=== PATIENT | female | born 1990 | race Caucasian/White ===

== ENCOUNTER 2018-02-05 09:41 | Emergency (ER) | payer OTHER ==
[~2018-02-05] VITALS: Ht 162.6 cm; Wt 84.0 kg
[~2018-02-05 09:41] MED LIST: Z.0.NO CURRENT MEDS; ZITH500T PO
[2018-02-05 09:47] VITALS: BP 133/84; PULSE 91; RESP 16; TEMP 98.1; O2SAT 99
--- NOTE | 2018-02-05 10:25 | PD ---
HPI Chief Complaint: Injury Time Seen by Provider: 10:16 Travel History International Travel<30 days: No Contact w/Intl Traveler<30days: No Traveled to known affect area: No History of Present Illness HPI 27-year-old female presents to the emergency department for evaluation of left ankle injury that occurred twice yesterday. Patient states she rolled her left ankle twice coming downstairs. She had no other injury. No head injury or LOC. No neck pain or back pain. No chest pain or abdominal pain. Patient states the pain is 1/10 with rest, exacerbates the 10/10 with movement. Pain is aching and throbbing. Patient reports history of multiple ankle sprains in the past. She has no chronic medical problems and takes no prescribed medications. Patient is unsure she could be . Mild severity. PFSH Past Medical History Diminished Hearing: No Genitourinary: Yes (LT. OVARIAN CYST.) Seizures: Yes (DIAGNOSED 2009) ?: Unknown LMP: 12/20/17 Ovarian Cysts: Yes (LEFT) Past Surgical History Surgical History: No Previous Surgery Social History Alcohol Use: No Tobacco Use: Yes (1/2PPD) Substance Use: Yes (MARIJUANA) Allergies-Medications (Allergen,Severity, Reaction): Coded Allergies: amoxicillin (Unverified Allergy, Unknown, 04/02/17) "THE DOCTOR'S WEREN'T SURE IF IT CAUSED MY SEIZURES OR NOT" Reported Meds & Prescriptions Reported Meds & Active Scripts Active No Active Prescriptions or Reported Medications Review of Systems Except as stated in HPI: all other systems reviewed are Neg Physical Exam Narrative GENERAL: Well-nourished, well-developed female patient, afebrile. SKIN: Focused skin assessment warm/dry. HEAD: Normocephalic. Atraumatic. EYES: No scleral icterus. No injection or drainage. NECK: Supple, trachea midline. No JVD or lymphadenopathy. CARDIOVASCULAR: Regular rate and rhythm without murmurs, gallops, or rubs. Left pedal pulse is 2+. RESPIRATORY: Breath sounds equal bilaterally. No accessory muscle use. Lung sounds are clear to auscultation. GASTROINTESTINAL: Abdomen soft, non-tender, nondistended. MUSCULOSKELETAL: No cyanosis, or edema. Patient has swelling and pain over left lateral ankle. She has full sensation in the distal left lower extremity. No Achilles tendon injury on exam. Data Data Last Documented VS Vital Signs Date Time Temp Pulse Resp B/P (MAP) Pulse Ox O2 Delivery O2 Flow Rate FiO2 02/05/18 09:47 98.1 91 16 133/84 (100) 99 Orders Orders Ed Urine Pregnancytest Poc (02/05/18 09:58) Acetaminophen (Tylenol) (02/05/18 10:30) Ankle, Complete ([id number]) (02/05/18 ) Splint Or Brace Apply/Monitor (02/05/18 11:50) Crutches (02/05/18 11:50) MDM Medical Decision Making Medical Screen Exam Complete: Yes Emergency Medical Condition: Yes Medical Record Reviewed: Yes Interpretation(s) Last Impressions Ankle X-Ray 02/05/18 0000 Signed Impressions: CONCLUSION: Lateral soft tissue swelling. A bony fracture is not seen. Differential Diagnosis Ankle sprain versus fracture versus dislocation Narrative Course 27-year-old female presents to the emergency department for evaluation of left ankle injury when she rolled it twice yesterday. test is positive in the emergency department. She denies any abdominal pain or vaginal discharge. Her last menstrual cycle was December 20, 2017. Patient is given Tylenol 650 mg p.o. for pain. X-ray of the left ankle is ordered and pending. X-ray of the left ankle shows lateral soft tissue swelling, no acute bony fracture. Patient is provided Zbigniew bandage and crutches. She is to take Tylenol [id number] for pain and use ice. Patient instructed to follow the primary care physician as well as an soil technician for . She verbalizes agreement. The patient was discharged in stable condition with instructions, including return instructions and follow up instructions. Diagnosis Primary Impression: Left ankle sprain Qualified Codes: S93.402A - Sprain of unspecified ligament of left ankle, initial encounter Additional Impression: Qualified Codes: Z3A.01 - Less than 8 weeks gestation of Referrals: Gun Perforator call for appointment Primary Care Physician call for appointment Patient Instructions: Ankle Sprain (ED), General Instructions Additional Instructions: [id number] Tylenol every 4 hours as needed for pain. Ice for 20 minutes on, 20 minutes off. Use Zbigniew bandage and crutches as needed for support. Follow-up with your primary care physician. Follow up with an soil technician for . Return to the emergency department for any acute worsening of symptoms. Med/Other Pt SpecificInfo: No Change to Meds Scripts No Active Prescriptions or Reported Meds Disposition: 01 DISCHARGE HOME Condition: Stable Ann Leigh Feb 05, 2018 10:25
[2018-02-05] MEDS ORDERED: ACETAMINOPHEN 325 MG TAB PO ONE (10:30)
--- NOTE | 2018-02-05 11:24 | RADRPT ---
EXAM DATE: 02/05/2018 10:52 AM EDT AGE/SEX: 27 years / Female INDICATIONS: Left lateral ankle pain after rolling it twice yesterday. Painful while weightbearing. CLINICAL DATA: This is the patient's initial encounter. Patient reports that signs and symptoms have been present for 2 days and indicates a pain score of 5/10. MEDICAL/SURGICAL HISTORY: None. None. COMPARISON: No prior exams available for comparison. FINDINGS: Bony structures are intact and in normal alignment. Joints are intact without dislocation or signifi cant arthropathy. Osseous density is normal. There is soft tissue swelling seen laterally. No radi opaque foreign bodies seen. CONCLUSION: Lateral soft tissue swelling. A bony fracture is not seen. Electronically signed by: Harlna Smalls MD 02/05/2018 11:22 AM EDT
== END 2018-02-05 12:07 | disposition home or self-care (01) ==
LOC: PHED 09:41 → PHEFT 12:07
DX: O9A.211 Injury, poisoning and certain other consequences of external causes complicating pregnancy, first trimester (principal); S93.402A Sprain of unspecified ligament of left ankle, initial encounter; X50.1XXA Overexertion from prolonged static or awkward postures, initial encounter; Z3A.01 Less than 8 weeks gestation of pregnancy
CPT/HCPCS: 73610; 84703; 99283; E0113